=== PATIENT | female | born 1965 | race Caucasian/White ===

== ENCOUNTER → 2017-01-15 | Outpatient (CLI) | payer BC ==
[2017-01-15 09:11] LABS: Anisocytosis Marked; CH 21.6; CHCM 27.2; HCT 33.8 % (34.0-46.0); HDW 3.03; HGB 9.5 gm/dL (11.4-16.0); Hypochromasia Marked; MCH 22.2 pg (25.0-35.0); MCHC 28.1 g/dL (31.0-37.0); MCV 79.3 fL (80.0-100.0); Mean Platelet Volume 7.3; Microcytosis Moderate; RBC 4.27 m/uL (3.80-5.40); WBC 3.1 k/uL (3.8-10.6)
[2017-01-15 09:18] LABS: RDW 25.6 % (11.5-15.5)
--- NOTE | 2017-01-15 10:05 | US ---
EXAMINATION TYPE: US transvaginal DATE OF EXAM: 01/15/2017 8:22 AM COMPARISON: US in PACS CLINICAL HISTORY: 51-year-old female with menorrhagia patient states abnormal heavy menses Date of LMP: 12/31/2016 TECHNIQUE: Transvaginal (TV) scanning of the pelvis. TECHNIQUE: EXAM MEASUREMENTS: Uterus: 12.6 x 6.2 x 7.2 cm Endometrial Stripe: 1.3 cm Right Ovary: 2.0 x 2.3 x 2.3 cm Left Ovary: 2.6 x 1.7 x 2.2 cm 1. Uterus: Anteverted, bulky, and heterogeneous as seen on previous exam. 2. Endometrium: Not well visualized but appears slightly thickened. However, this would correspond w ith the secretory phase of the menstrual cycle. 3. Right Ovary: Normal size but with a persistent 1.4 cm cyst. There may be some minimal wall calcif ication. A similar cystic structure in the right ovary on 01/16/2016 measured 1.5 cm. 4. Left Ovary: Within normal limits. 5. Bilateral Adnexa: Small amount of free fluid right adnexa 6. Posterior cul-de-sac: No gross abnormal mobility. IMPRESSION: 1. The uterus remains bulky and heterogeneous in appearance. This could reflect diffuse small fibroid change. 2. Endometrium not well visualized but appears slightly thickened up to 1.3 cm. This would correspond to the secretory phase of menstrual cycle. Correlate to ensure that the patient is not postmenopausa l, in which case, further evaluation would be indicated. 3. Persistent or recurrent 1.4 cm cyst in the right ovary. The enrichment teacher reports that the patient h as a family history of ovarian cancer. Currently, the features of the cyst are not particularly suspi cious. Consider 6-12 month follow-up. Trace adjacent adnexal free fluid.
[2017-01-15 11:15] LABS: ALT 39 U/L (9-52); AST 34 U/L (14-36); Alkaline Phosphatase 64 U/L (38-126); Anion Gap 10 mmol/L; Blood Urea Nitrogen 10 mg/dL (7-17); Calcium 9.8 mg/dL (8.4-10.2); Carbon Dioxide 28 mmol/L (22-30); Chloride 106 mmol/L (98-107); Cholesterol 191 mg/dL (<200); Glucose 86 mg/dL (74-99); HDL Cholesterol 98 mg/dL (40-60); Iron 50 ug/dL (37-170); Non-African American GFR(MDRD) >60 (>60 ml/min/1.73 sqM); Sodium 144 mmol/L (137-145); Total Bilirubin 0.6 mg/dL (0.2-1.3); Triglycerides 52 mg/dL (<150)
[2017-01-15 11:19] LABS: Potassium 4.1 mmol/L (3.5-5.1)
[2017-01-15 11:24] LABS: % Iron Saturation 11.1 % (20-50); Total Iron Binding Capacity 450 ug/dL (265-497)
[2017-01-15 11:52] LABS: Cancer Anitgen 125 12.2 U/mL (<35.1)
== END | disposition home or self-care (01) ==
LOC: RADUSWWP 08:03
PROVIDERS: ATTEND Obstetrics & Gynecology
DX: N83.201 Unspecified ovarian cyst, right side (principal); N92.0 Excessive and frequent menstruation with regular cycle; D64.9 Anemia, unspecified
CPT/HCPCS: 36415; 76830; 80053; 80061; 83540; 83550; 84439; 84443; 85027; 86304

== ENCOUNTER → 2018-01-22 | Outpatient (CLI) | payer BC ==
--- NOTE | 2018-01-22 13:42 | US ---
EXAMINATION TYPE: US transvaginal DATE OF EXAM: 01/22/2018 COMPARISON: US pelvis 01/15/2017 CLINICAL HISTORY: Previous Ovarian Cyst N83.20. Follow up to previous right ovarian cyst. No pain or bleeding. TECHNIQUE: . Transvaginal sonographic images were medically necessary to better assess the followin g anatomy: Uterus and ovaries Date of LMP: 06/11/2017 EXAM MEASUREMENTS Uterus: 9.7 x 5.2 x 6.2 cm Endometrial Stripe: 1.0 cm Right Ovary: 3.7 x 3.0 x 1.7 cm Left Ovary: 2.8 x 1.8 x 1.0 cm 1. Uterus: Anteverted Bulky and heterogeneous 2. Endometrium: Thickened for post menopausal female 3. Right Ovary: Cystic area visualized with calcified appearing rim measuring 1.1 x 1.0 x 1.0 cm 4. Left Ovary: wnl 5. Bilateral Adnexa: wnl 6. Posterior cul-de-sac: wnl Heterogeneous bulky slightly retroverted uterus is redemonstrated. Endometrium is not well visualized on images saved and suspected thickened though not significantly changed from prior study in appeara nce or thickness. No free fluid is seen in pelvic cul-de-sac. There is redemonstration of 1.0 cm fairly simple appearing cyst in the right ovary. No suspicious new adnexal lesion identified. IMPRESSION: 1. Heterogeneous bulky uterus redemonstrated reflecting underlying fibroid change. This can be confir med with pelvic MRI if desired. 2. Stable simple appearing 1.0 cm cyst right ovary. No new suspicious adnexal lesions identified. 3. Stable appearance of endometrium however given patient's history of last known menstrual period Au 2016, this is now abnormally thickened. Consider sampling to further investigate though it i s once again noted endometrium is poorly visualized in this retroverted bulky uterus. Consider MRI fo llow-up and or repeat ultrasound in 2-3 months time to reassess.
== END | disposition home or self-care (01) ==
LOC: RADUSWWP 07:24
PROVIDERS: ATTEND Obstetrics & Gynecology
DX: R93.8 Abnormal findings on diagnostic imaging of other specified body structures (principal); N83.201 Unspecified ovarian cyst, right side; N83.202 Unspecified ovarian cyst, left side
CPT/HCPCS: 36415; 76830; 86304

== ENCOUNTER → 2020-04-03 | Outpatient (CLI) | payer BC ==
--- NOTE | 2020-04-03 13:21 | MM ---
Reason for exam: screening (asymptomatic). Last mammogram was performed 1 year and 3 months ago. History: Patient is postmenopausal. Took hormonal contraceptives for 2 years. Physical Findings: A clinical breast exam by your physician is recommended on an annual basis and results should be correlated with mammographic findings. MG 3D Screening Mammo W/Cad Bilateral CC and MLO view(s) were taken. Prior study comparison: January 12, 2019, mammogram. January 08, 2018, mammogram. The breast tissue is heterogeneously dense. This may lower the sensitivity of mammography. Finding: There are typically benign round, regional calcifications in the right breast. There is no discrete abnormality. ASSESSMENT: Benign, BI-RAD 2 RECOMMENDATION: Routine screening mammogram of both breasts in 1 year.
== END | disposition home or self-care (01) ==
LOC: RADMAMWWP 10:23
PROVIDERS: ATTEND Obstetrics & Gynecology
DX: Z12.31 Encounter for screening mammogram for malignant neoplasm of breast (principal)
CPT/HCPCS: 77063; 77067

== ENCOUNTER → 2021-04-04 | Outpatient (CLI) | payer BC ==
--- NOTE | 2021-04-06 11:48 | MM ---
Reason for exam: screening (asymptomatic). Last mammogram was performed 1 year ago. History: Patient is postmenopausal. Took hormonal contraceptives for 2 years. Physical Findings: A clinical breast exam by your physician is recommended on an annual basis and results should be correlated with mammographic findings. MG 3D Screening Mammo W/Cad Bilateral CC and MLO view(s) were taken. Prior study comparison: April 03, 2020, bilateral MG 3d screening mammo w/cad. January 12, 2019, mammogram. The breast tissue is heterogeneously dense. This may lower the sensitivity of mammography. No significant changes when compared with prior studies. ASSESSMENT: Negative, BI-RAD 1 RECOMMENDATION: Routine screening mammogram of both breasts in 1 year. Patient should continue monthly self breast exams. A negative report should not preclude additional follow up of suspicious palpable abnormalities.
== END | disposition home or self-care (01) ==
LOC: RADMAMWWP 13:27
PROVIDERS: ATTEND Obstetrics & Gynecology
DX: Z12.31 Encounter for screening mammogram for malignant neoplasm of breast (principal); Z78.0 Asymptomatic menopausal state
CPT/HCPCS: 77063; 77067

== ENCOUNTER → 2021-07-03 | Outpatient (CLI) | payer BC ==
--- NOTE | 2021-07-03 15:28 | BD ---
EXAMINATION TYPE: Axial Bone Density DATE OF EXAM: 07/03/2021 COMPARISON: NONE CLINICAL HISTORY: Height: 5 FT 5 1/4 IN Weight: 160 FRAX RISK QUESTIONS: Alcohol (3 or more units per day): NO Family History (Parent hip fracture): NO Glucocorticoids (More than 3mos): NO (Ex: prednisone, prednisolone, methylprednisolone, dexamethasone, and hydrocortisone). History of Fracture in Adulthood: NO Secondary Osteoporosis: 1. Type 1 Diabetes: NO 2. Hyperthyroidism: NO 3. Menopause before 45: NO 4. Malnutrition: NO 5. Chronic liver disease: NO Rheumatoid Arthritis: NO Current Tobacco Use: NO RISK FACTORS HISTORY OF: Surgery to Spine/Hip(right/left)/Wrist (right/left): NO Family History of Osteoporosis: NO Active: YES Diet low in dairy products/other sources of calcium: NO Postmenopausal woman: AGE 54 Take estrogen and/or progesterone medications: NO Lost more than 2 inches in height since high school: YES MEDICATIONS: Additional Medications: NONE Additional History: EXAM MEASUREMENTS: Bone mineral densitometry was performed using the [employer] System. Bone mineral density as measured about the Lumbar spine is: ----- L1-L4(G/cm2): 1.579 T Score Values are as follows: ----- L2: 3.3 ----- L3: 3.2 ----- L4: 4.3 ----- L1-L4: 3.3 BASELINE Bone mineral density about the R hip (g/cm2): 1.155 Bone mineral density about the L hip (g/cm2): 1.126 T Score values are as follows: -----R Neck: 0.8 -----L Neck: 0.6 -----R Total: 1.1 -----L Total: 0.8 BASELINE IMPRESSION: Normal (Values between +1 and -1 indicate normal bone mass). Consider repeating this study in 5 year s or sooner if there is some new clinical indication. NOTE: T-SCORE=SD OF THE YOUNG ADULT MEAN.
== END | disposition home or self-care (01) ==
LOC: RADBDWWP 13:12
PROVIDERS: ATTEND Obstetrics & Gynecology
DX: Z78.0 Asymptomatic menopausal state (principal)
CPT/HCPCS: 77080

== ENCOUNTER → 2022-01-24 | Outpatient (CLI) | payer BC | END | disposition home or self-care (01) | LOC: LABWHC1 10:28 | PROVIDERS: ATTEND Obstetrics & Gynecology | DX: Z80.41 Family history of malignant neoplasm of ovary (principal) | CPT/HCPCS: 36415; 86304 ==

== ENCOUNTER → 2022-04-05 | Outpatient (CLI) | payer BC ==
--- NOTE | 2022-04-08 13:59 | MM ---
Reason for Exam: Screening (asymptomatic). Last screening mammogram was performed 12 month(s) ago. Patient History: Menarche at age 13. First Full-Term at age 28. Postmenopausal. Patient used Hormonal Contraceptives for 2 years. Risk Values: Jaimie 5 year model risk: 1.4%. NCI Lifetime model risk: 7.8%. Prior Study Comparison: 01/12/2019 Screening Mammogram, Unknown. 04/03/2020 Bilateral Screening Mammogram, [facility]. 04/04/2021 Bilateral Screening Mammogram, [facility]. Tissue Density: The breast tissue is heterogeneously dense. This may lower the sensitivity of mammography. Findings: Analyzed By CAD. On the right, grouped microcalcifications far posteriorly and centrally on the MLO view may have been faintly on the older prior of 2018. Further magnification views are recommended. Central outer asymmetric density left cc view appears more defined and incompletely disperses on 3-D images. Further evaluation is recommended. Overall Assessment: Incomplete: need additional imaging evaluation, BI-RAD 0 Management: Diagnostic Mammogram of both breasts. 1. Additional views right breast to include mag MLO, 3-D lateral, 3-D XCCL, and mag lateral if possible to bring the calcifications into the field of view. 2. Additional views left breast to include spot 3-D CC, 3-D CC rolled medial, and 3-D ML views. Targeted left breast ultrasound if any persisting abnormality. Electronically signed and approved by: Michael Mcintyre M.D. Radiologist
== END | disposition home or self-care (01) ==
LOC: RADMAMWWP 11:13
PROVIDERS: ATTEND Obstetrics & Gynecology
DX: Z12.31 Encounter for screening mammogram for malignant neoplasm of breast (principal); Z78.0 Asymptomatic menopausal state
CPT/HCPCS: 77063; 77067

== ENCOUNTER → 2022-04-11 | Outpatient (CLI) | payer BC ==
--- NOTE | 2022-04-11 09:07 | USB ---
Reason for Exam: Additional evaluation requested from abnormal screening. Last screening mammogram was performed less than 1 month ago. Patient History: Menarche at age 13. First Full-Term at age 28. Postmenopausal. Patient has history of breast feeding. Patient used Hormonal Contraceptives for 2 years. Risk Values: Jaimie 5 year model risk: 1.4%. NCI Lifetime model risk: 7.8%. Prior Study Comparison: 04/04/2021 Bilateral Screening Mammogram, [facility]. 04/05/2022 Bilateral MG 3D screening mammo w/cad, [facility]. Tissue Density: The breast tissue is heterogeneously dense. This may lower the sensitivity of mammography. Findings: Analyzed By CAD. Mammogram Right breast: Calcifications in question posterior right breast were present on a study from 2019 and appears stable. No suspicious calcifications are evident. Left breast: Additional views of the left breast demonstrate improved but persistent density left 3:00 position. Ultrasound is advised.. Technique: Method: Targeted. Findings: Hypoechoic area left 2:00 breast is felt to reflect the lobe measuring 6 x 3 mm. Precautionary six-month follow-up is advised of the left breast including ultrasound and mammography. Overall Assessment: Probably benign, BI-RAD 3 Assessment: MG 3D work up w/cad [facility] - Bilateral: Incomplete: need additional imaging evaluation, BI-RAD 0 - Left. US breast workup limited LT - Left: Probably benign, BI-RAD 3. Management: Diagnostic Mammogram of the left breast in 6 months. Diagnostic Breast Ultrasound of the left breast in 6 months. A clinical breast exam by your physician is recommended on an annual basis and results should be correlated with mammographic findings. Results were given to the patient verbally at the time of exam. Electronically signed and approved by: Ken Bourne M.D. Radiologis
== END | disposition home or self-care (01) ==
LOC: RADMAMWWP 07:28
PROVIDERS: ATTEND Obstetrics & Gynecology
DX: R92.8 Other abnormal and inconclusive findings on diagnostic imaging of breast (principal); Z78.0 Asymptomatic menopausal state
CPT/HCPCS: 77062; 77066

== ENCOUNTER → 2022-10-18 | Outpatient (CLI) | payer BC ==
--- NOTE | 2022-10-18 14:45 | MM ---
Reason for Exam: Follow-up at short interval from prior study. Last screening mammogram was performed 7 month(s) ago. Patient History: Menarche at age 13. First Full-Term at age 28. Postmenopausal. Patient has history of breast feeding. Patient used Hormonal Contraceptives for 2 years. Risk Values: Jaimie 5 year model risk: 1.4%. NCI Lifetime model risk: 7.8%. Prior Study Comparison: 04/04/2021 Bilateral Screening Mammogram, [facility]. 04/05/2022 Bilateral MG 3D screening mammo w/cad, [facility]. 04/11/2022 Bilateral MG 3D work up w/cad [facility], [facility]. Tissue Density: Left: The breast tissue is heterogeneously dense. This may lower the sensitivity of mammography. Findings: Analyzed By CAD. Stable density within the left breast at 3:00 corresponding to benign-appearing lymph node on prior ultrasound. No new suspicious masses or worrisome cluster of microcalcifications. Overall Assessment: Benign, BI-RAD 2 Management: Screening Mammogram of both breasts in 6 months. A clinical breast exam by your physician is recommended on an annual basis and results should be correlated with mammographic findings. This exam should not preclude additional follow-up of suspicious palpable abnormalities. Results were given to the patient verbally at the time of exam. Electronically signed and approved by: Catarino Adler D.O.
== END | disposition home or self-care (01) ==
LOC: RADMAMWWP 14:06
PROVIDERS: ATTEND Obstetrics & Gynecology
DX: R92.8 Other abnormal and inconclusive findings on diagnostic imaging of breast (principal); Z78.0 Asymptomatic menopausal state
CPT/HCPCS: 77061; 77065

== ENCOUNTER → 2023-04-07 | Outpatient (CLI) | payer BC ==
--- NOTE | 2023-04-08 08:43 | MM ---
Reason for Exam: Screening (asymptomatic). Last screening mammogram was performed 12 month(s) ago. Patient History: Menarche at age 13. First Full-Term at age 28. Postmenopausal. Patient has history of breast feeding. Patient used Hormonal Contraceptives for 2 years. Risk Values: Jaimie 5 year model risk: 1.4%. NCI Lifetime model risk: 7.6%. Prior Study Comparison: 04/05/2022 Bilateral MG 3D screening mammo w/cad, [facility]. 04/11/2022 Bilateral MG 3D work up w/cad [facility], [facility]. 10/18/2022 Left MG 3D diag mammo w/cad LT, [facility]. Tissue Density: The breast tissue is heterogeneously dense. This may lower the sensitivity of mammography. Findings: Analyzed By CAD. There is no suspicious group of microcalcifications or new suspicious mass in either breast. Overall Assessment: Negative, BI-RAD 1 Management: Screening Mammogram of both breasts in [address] [facility] will attempt to contact patient to return for supplemental views and ultrasound if indicated. Patient should continue monthly self-breast exams. A clinical breast exam by your physician is recommended on an annual basis. This exam should not preclude additional follow-up of suspicious palpable abnormalities. Note on Jaimie scores and lifetime risk: 1. A Jaimie score greater than 3% is considered moderate risk. If this is the case, consider specialist referral to assess eligibility for a risk reducing agent. 2. If overall lifetime risk for the development of breast cancer is 20% or higher, the patient may qualify for future screening with alternating mammogram and breast MRI. Electronically signed and approved by: Tom Mcgee DO
== END | disposition home or self-care (01) ==
LOC: RADMAMWWP 10:07
PROVIDERS: ATTEND Obstetrics & Gynecology
DX: Z12.31 Encounter for screening mammogram for malignant neoplasm of breast (principal); Z78.0 Asymptomatic menopausal state
CPT/HCPCS: 77063; 77067

== ENCOUNTER → 2024-04-09 | Outpatient (CLI) | payer BC ==
--- NOTE | 2024-04-13 08:47 | MM ---
Reason for Exam: Screening (asymptomatic). Last screening mammogram was performed 12 month(s) ago. Patient History: Menarche at age 13. First Full-Term at age 28. Postmenopausal. Patient has history of breast feeding. Patient used Hormonal Contraceptives for 2 years. Sister had ovarian cancer, age 30. Risk Values: Jaimie 5 year model risk: 1.5%. NCI Lifetime model risk: 7.4%. Prior Study Comparison: 04/11/2022 Bilateral MG 3D work up w/cad [facility], [facility]. 10/18/2022 Left MG 3D diag mammo w/cad [place], [facility]. 04/07/2023 Bilateral MG 3D screening mammo w/cad, [facility]. Tissue Density: The breasts are heterogeneously dense, which may obscure small masses. Findings: Analyzed By CAD. Unchanged areas of asymmetric density on the right. There is no suspicious group of microcalcifications or new suspicious mass in either breast. Overall Assessment: Benign, BI-RAD 2 Management: Screening Mammogram of both breasts in 1 year. . Patient should continue monthly self-breast exams. A clinical breast exam by your physician is recommended on an annual basis. This exam should not preclude additional follow-up of suspicious palpable abnormalities. Note on Jaimie scores and lifetime risk: 1. A Jaimie score greater than 3% is considered moderate risk. If this is the case, consider specialist referral to assess eligibility for a risk reducing agent. 2. If overall lifetime risk for the development of breast cancer is 20% or higher, the patient may qualify for future screening with alternating mammogram and breast MRI. Electronically signed and approved by: Michael Mcintyre M.D. Radiologist
== END | disposition home or self-care (01) ==
LOC: RADMAMWWP 10:57
PROVIDERS: ATTEND Obstetrics & Gynecology
DX: Z12.31 Encounter for screening mammogram for malignant neoplasm of breast (principal); Z78.0 Asymptomatic menopausal state; Z80.41 Family history of malignant neoplasm of ovary; Z92.0 Personal history of contraception
CPT/HCPCS: 77063; 77067

== ENCOUNTER → 2025-04-18 | Outpatient (CLI) | payer BC ==
--- NOTE | 2025-04-18 11:02 | BD ---
EXAMINATION TYPE: Axial Bone Density DATE OF EXAM: 04/18/2025 CLINICAL HISTORY: 60 years old Female. ICD-10 CODE: Z780 POST PAYTON WITHOUT HRT , Additional History: Height: 64 Weight: 170 FRAX RISK QUESTIONS: Secondary Osteoporosis: RISK FACTORS HISTORY OF: MEDICATIONS: EXAM MEASUREMENTS: Bone mineral densitometry was performed using the [email or web address]. Bone mineral density as measured about the Lumbar spine is: ----- L1-L4(G/cm2): 1.579 T Score Values are as follows: ----- L1: 2.7 ----- L2: 2.9 ----- L3: 3.1 ----- L4: 4.5 ----- L1-L4: 3.3 Z Score Values are as follows: ----- L1: 3.6 ----- L2: 3.8 ----- L3: 4.0 ----- L4: 5.4 ----- L1-L4: 4.2 Bone mineral density has: unchanged 0% since study of: 07-03-21 Bone mineral density about the R hip (g/cm2): 1.102 Bone mineral density about the L hip (g/cm2): 1.101 T Score values are as follows: -----R Neck: 0.6 -----L Neck: 0.2 -----R Total: 0.8 -----L Total: 0.7 Z Score values are as follows: -----R Neck: 1.6 -----L Neck: 1.2 -----R Total: 1.4 -----L Total: 1.4 Bone mineral density has: Decreased -2.1% since study of: 07-03-21 FRAX%s: The graph provided illustrates a 6.0% chance for a major osteoporotic fx and a 0.1% chance fo r the hips probability for fx in 10 years time. IMPRESSION: Normal (Values between +1 and -1 indicate normal bone mass). Consider repeating this study in 5 year s or sooner if there is some new clinical indication. NOTE: T-SCORE=SD OF THE YOUNG ADULT MEAN. [facility], , 04/18/2025 10:59 AM
--- NOTE | 2025-04-18 12:14 | MM ---
Reason for Exam: Screening (asymptomatic). Last mammogram was performed 1 year(s) and 1 month(s) ago. Patient History: Menarche at age 13. First Full-Term at age 28. Postmenopausal. Patient has history of breast feeding. Patient used Hormonal Contraceptives for 2 years. Sister had ovarian cancer, age 30. Risk Values: Jaimie 5 year model risk: 1.5%. NCI Lifetime model risk: 7.2%. Prior Study Comparison: 10/18/2022 Left MG 3D diag mammo w/cad LT, [facility]. 04/07/2023 Bilateral MG 3D screening mammo w/cad, [facility]. 04/09/2024 Bilateral MG 3D screening mammo w/cad, [facility]. Tissue Density: The breasts are heterogeneously dense, which may obscure small masses. Findings: Analyzed By CAD. There are a few scattered tiny benign-appearing round calcifications bilaterally redemonstrated. Benign-appearing bilateral axillary lymph nodes are seen. There is no suspicious group of microcalcifications or new suspicious mass in either breast. Overall Assessment: Benign, BI-RAD 2 Management: Screening Mammogram of both breasts in 1 year. . Patient should continue monthly self-breast exams. A clinical breast exam by your physician is recommended on an annual basis. This exam should not preclude additional follow-up of suspicious palpable abnormalities. Note on Jaimie scores and lifetime risk: 1. A Jaimie score greater than 3% is considered moderate risk. If this is the case, consider specialist referral to assess eligibility for a risk reducing agent. 2. If overall lifetime risk for the development of breast cancer is 20% or higher, the patient may qualify for future screening with alternating mammogram and breast MRI. [facility], , 04/18/2025 12:11 PM. Electronically signed and approved by: Jose Antonio Rueda M.D.
== END | disposition home or self-care (01) ==
LOC: RADMAMWWP 10:04
PROVIDERS: ATTEND Obstetrics & Gynecology
DX: Z12.31 Encounter for screening mammogram for malignant neoplasm of breast (principal); R92.333 Mammographic heterogeneous density, bilateral breasts; Z78.0 Asymptomatic menopausal state; Z92.0 Personal history of contraception
CPT/HCPCS: 77063; 77067; 77080